=== PATIENT | male | born 1995 | race Caucasian/White ===

== ENCOUNTER 2019-08-27 03:45 | Emergency (ER) | payer OTHER ==
[~2019-08-27] VITALS: Ht 195.6 cm; Wt 87.4 kg
[2019-08-27 04:27] LABS: BASOPHILS % (AUTO) 0.3 % (0-1); CLARITY,URINE CLEAR (Clear); COLOR,URINE YELLOW (Yellow); EOSINOPHILS # (AUTO) 0.2 X10'3 (0-0.9); EOSINOPHILS % (AUTO) 2.7 % (0-6); GLUCOSE, URINE NEGATIVE (Neg); HEMATOCRIT 46.9 % (42.0-52.0); HEMOGLOBIN 16.6 g/dl (14.0-17.9); KETONES,URINE NEGATIVE (Neg); LEUKOCYTE ESTERASE ,URINE NEGATIVE (Neg); LYMPHOCYTES # (AUTO) 2.9 X10'3 (1.1-4.8); LYMPHOCYTES % (AUTO) 37.2 % (21-51); MEAN CORPUSCULAR HEMOGLOBIN 32.8 PG (27.0-31.0); MEAN CORPUSCULAR HGB CONC 35.3 g/dL (33.0-36.5); MEAN PLATELET VOLUME 7.2 FL (7.4-10.4); MONOCYTES # (AUTO) 0.4 X10'3 (0-0.9); MONOCYTES % (AUTO) 5.6 % (2-12); NEUTROPHILS # (AUTO) 4.2 X10'3 (1.8-7.7); NEUTROPHILS % (AUTO) 54.2 % (42-75); NITRITES, URINE NEGATIVE (Neg); OCCULT BLOOD,URINE TRACE-INTACT (Neg); PH,URINE 6.5 (4.8-8.0); PLATELET COUNT 300 X10'3 (140-440); PROTEIN,URINE NEGATIVE (Neg); RED BLOOD COUNT 5.04 X10'6 (4.70-6.10); UROBILINOGEN,URINE 0.2 E.U/dL (0.2-1.0); WHITE BLOOD COUNT 7.8 X10'3 (4.5-11.0)
[2019-08-27 04:32] LABS: UA COLLECTION TYPE VOIDED
[2019-08-27 04:33] LABS: BACTERIA,URINE NONE SEEN /HPF (Neg); RBC,URINE 0-2 /HPF (0-2); SQUAMOUS EPITHELIAL CELL,UR NONE SEEN /LPF (FEW); WBC,URINE NONE SEEN /HPF (0-4)
[2019-08-27 04:40] LABS: URINE AMPHETAMINE SCREEN NEGATIVE (Neg); URINE BARBITUATE SCREEN NEGATIVE (Neg); URINE BENZODIAZEPINES SCREEN NEGATIVE (Neg); URINE CANNABINOID SCREEN NEGATIVE (Neg); URINE COCAINE SCREEN NEGATIVE (Neg); URINE METHADONE SCREEN NEGATIVE (Neg); URINE OPIATE SCREEN NEGATIVE (Neg); URINE PHENCYCLIDINE SCREEN NEGATIVE (Neg)
[2019-08-27 04:41] LABS: ALANINE AMINOTRANSFERASE 36 U/L (12-78); ALBUMIN 4.1 G/DL (3.4-5.0); ALBUMIN/GLOBULIN RATIO 1.1 (1.1-1.5); ALKALINE PHOSPHATASE 88 IU/L (46-116); ANION GAP 10 (8-16); ASPARTATE AMINO TRANSFERASE 16 U/L (10-37); BILIRUBIN,TOTAL 0.3 MG/DL (0.1-1.0); BLOOD UREA NITROGEN 6 MG/DL (7-18); BUN/CREATININE RATIO 6.7 (5.4-32.0); CALCIUM 8.2 MG/DL (8.5-10.1); CHLORIDE 106 MMOL/L (99-107); ETHANOL 0.162 GM/DL (0.0-0.010); GLUCOSE 112 MG/DL (70-104); POTASSIUM 3.5 MMOL/L (3.5-5.1); SODIUM 142 MMOL/L (135-145); TOTAL CARBON DIOXIDE 25.6 MMOL/L (24-32); eGFR > 90 ML/MIN
[2019-08-27] MEDS ORDERED: FLUV50TA3 PO (05:02)
[2019-08-27] MEDS ORDERED: NALT50TA PO (05:02)
[2019-08-27] MEDS ORDERED: DIVA125T31 PO (05:02)
[2019-08-27] MEDS ORDERED: DISU250T7 PO (05:02)
[2019-08-27 05:32] VITALS: BP 127/89
--- NOTE | 2019-08-27 05:40 | NUR ---
patient states he does not know if he wishes to be at this time with no plan
[2019-08-27] MEDS ORDERED: naltrexone 50mg tablet PO SCH (08:00)
[2019-08-27] MEDS ORDERED: divalproex sodium 500mg tablet.DR PO SCH (08:00)
[2019-08-27] MEDS ORDERED: fluvoxamine 25 MG tablet PO SCH (08:00)
--- NOTE | 2019-08-27 11:23 | NUR ---
pt is currently rsting at this time. no signs of distress noted
--- NOTE | 2019-08-27 11:58 | NUR ---
sister at bedside visitng
[2019-08-27] MEDS ORDERED: nicotine 21mg patch - 24 hr TD SCH (12:40)
--- NOTE | 2019-08-27 12:46 | NUR ---
per patient request, spoke to md to get an order for nicotine patch. orders placed
--- NOTE | 2019-08-27 12:54 | NUR ---
pt is up and ambulating. pt has no needs at this time
--- NOTE | 2019-08-27 13:08 | NUR ---
[facility] here to evaluate patient
--- NOTE | 2019-08-27 13:45 | NUR ---
pt back in bed and resting at this time. no signs of distress
--- NOTE | 2019-08-27 14:12 | NUR ---
spoke to patients SO Matthew about discharge plans. matthew will be his transportation at discharge.
== END 2019-08-27 14:34 | disposition home or self-care (01) ==
LOC: ER 03:46
DX: F10.929 Alcohol use, unspecified with intoxication, unspecified (principal); F31.9 Bipolar disorder, unspecified; R45.851 Suicidal ideations; Y90.9 Presence of alcohol in blood, level not specified
CPT/HCPCS: 36415; 80053; 80305; 80320; 81001; 85025; 99284